=== PATIENT | female | born 2000 | race Hispanic/Latino ===

== ENCOUNTER 2024-12-09 00:37 | Observation (INO) | payer SELFPAY ==
--- OUTSIDE RECORDS SUMMARY | 2024-12-09 00:41 | XMS REPORT | Continuity of Care Document ---
Author Name Unknown Address [address] [facility] [address] [place] [address] Organization [facility] [place] Address [address] [facility] [place] [address] Care Team Providers Care Medical Researcher Name Role Phone Jonathan Mcnamara Primary Care Physicia n Gina Gagnon PA-C Attending Clinician [phone] JONATHAN MISHRA Attending Clinician Unavail able Jonathan Mcnamara Attending Clinician + Doctor Unassigned, [place] Attending Clinician U Brad Garcia Attending Clinician UnaBRAD Peters Attending Clinician Unavailab le Problems Condition Name Condition Details Condition Category Status Onset Date Resolution Date Last Treatment Date Treating Clinician Comments Source Screening examinatio n for STD (sexually transmitte d disease) Screening examinatio n for STD (sexually transmitte d disease) Disease Active 12-14 00:00: 00 [facility] Class 2 obesity with body mass index (BMI) of 35.0 to 35.9 in adult, unspecifie d obesity type, unspecifie d whether serious comorbidit y present Class 2 obesity with body mass index (BMI) of 35.0 to 35.9 in adult, unspecifie d obesity type, unspecifie d whether serious comorbidit y present Disease Active 12-14 00:00: 00 [facility] BMI 35.0-35.9, adult BMI 35.0-35.9, adult Disease Active 12-14 00:00: 00 [facility] Allergies, Adverse Reactions, Alerts Allergy Name Allergy Type Status Severity Reaction(s) Onset Date Inactive Date Treating Clinician Comments Source NO KNOWN ALLERGIE S Drug Class Active [facility] Social History Social Habit Start Date Stop Date Quantity Comments Source [facility] to SARS-CoV-2 (event) 2022-08-27 00:00:00 2022-09-06 09:29:00 Not sure [facility] Tobacco use and exposure 2021-12-14 00:00:00 2021-12-14 00:00:00 Smokeless tobacco non-user [facility] Alcohol intake 2021-12-14 00:00:00 2021-12-14 00:00:00 Lifetime non-drinker (finding) [facility] History of Social function 2021-12-14 00:00:00 2021-12-14 00:00:00 [facility] Sex Assigned At 2000 00:00:00 2000 00:00:00 [facility] Smoking Status Start Date Stop Date Source Never smoked tobacco [facility] Medications Ordered Medication Name Filled Medication Name Start Date Stop Date Current Medication? Ordering Clinician Indication Dosage Frequency Signature (SIG) Comments Components Source azithromyci n 500 mg tablet 12-18 00:00: 00 12-20 04:59 :00 No [id number] 1000mg Take 2 tablets by mouth in the morning for 1 day. [facility] No known medications 12-14 08:25: 19 No No known medication s [facility] Vital Signs Vital Name Observation Time Observation Value Comments S laura Systolic blood pressure 2022-09-06 14:30:00 132 mm[Hg] [facility] Diastolic blood pressure 2022-09-06 14:30:00 87 mm[Hg] [facility] Heart rate 2022-09-06 14:30:00 91 /min [facility] Body temperature 2022-09-06 14:30:00 35.5 Aleah [facility] Respiratory rate 2022-09-06 14:30:00 18 /min [facility] Body height 2022-09-06 14:30:00 162.6 cm [facility] Body weight 2022-09-06 14:30:00 99.701 kg [facility] BMI 2022-09-06 14:30:00 37.73 kg/m2 [facility] Procedures Procedure Date / Time Performed Performing Clinicia n Source [facility] PATIENT FINANCIAL POLICY 2022-09-06 14:07:49 Doctor Unassigned, [place] [facility] Encounters Start Date/Time End Date/Time Encounter Type Admission Type Attending [facility] Care Department Encounter ID Source 2022-09-11 00:00:00 2022-09-11 00:00:00 Patient Secure Gina Abreu [facility] [id number] 350.1.13.10 [id number] [id number] [facility] 2022-09-11 00:00:00 2022-09-11 00:00:00 Patient Secure Msg Gagnon [facility] [id number] [id number] [id number] [id number] [facility] 2022-09-06 09:15:00 2022-09-06 10:15:07 Outpatient [facility] [id number] [facility] 2022-09-06 09:15:00 2022-09-06 10:15:07 Office Visit Jonathan Mishra [facility] INCIDENT ENGINEER [facility] 1..840.114 350.1.13.10 4.2.7.2.686 [id number] [facility] 2022-09-06 00:00:00 2022-09-06 00:00:00 Orders Only Doctor Unassigned, [place] [facility] [id number] 350.1.13.10 4.2.7.2.686 [id number] [facility] 2021-12-26 00:00:00 2021-12-26 00:00:00 Patient Secure Brad Betts [facility] INCIDENT ENGINEER [facility]ILD [facility] 1.2.840.114 350.1.13.10 4.2.7.2.686 [id number] [facility] 2021-12-23 00:00:00 2021-12-23 00:00:00 Elvis Brad Betts [facility] INCIDENT ENGINEER [facility] CHILD [facility] [id number] 350.1.13.10 4.2.7.2.686 [id number] [facility] 2021-12-22 00:00:00 2021-12-22 00:00:00 Telephone Brad Betts [facility] INCIDENT ENGINEER [facility] CHILD [facility] 1.2.840.114 350.1.13.10 4.2.7.2.686 [id number] [facility] 2021-12-22 00:00:00 2021-12-22 00:00:00 Elvis Brad Betts [facility] INCIDENT ENGINEER [facility] CHILD [facility] [id number] 350.1.13.10 4.2.7.2.686 [id number] [facility] 2021-12-18 00:00:00 2021-12-18 00:00:00 Telephone Brad Betts [facility] INCIDENT ENGINEER [facility] 1.2.840.114 350.1.13.10 4.2.7.2.686 [id number] [facility] 2021-12-18 00:00:00 2021-12-18 00:00:00 Telephone Brad Betts [facility] INCIDENT ENGINEER [facility] [id number] 350.1.13.10 4.2.7.2.686 [id number] [facility] 2021-12-14 08:15:00 2021-12-14 09:02:10 Office Visit Brad Betts [facility] INCIDENT ENGINEER [facility] & CHILD [facility] [id number] 350.1.13.10 4.2.7.2.686 [id number] [facility] 2021-12-14 08:15:00 2021-12-14 09:02:10 Outpatient [facility] [id number] [facility] 2021-12-14 07:45:00 2021-12-14 07:45:00 Outpatient [facility] [id number] [facility]
[2024-12-09] MEDS ORDERED: METOCLOPRAMIDE 10 MG/2mL INJ ONE (01:17)
[2024-12-09] MEDS ORDERED: FAMOTIDINE 20 MG/2 ML VIAL IV ONE (01:17)
[2024-12-09] MEDS ORDERED: ONDANSETRON 4 MG/2 ML VIAL ONE ×2 (01:18→08:41)
[2024-12-09] MEDS ORDERED: NA CHLORIDE 0.9% 1,000 ML ONE ×2 (01:18→05:46)
[2024-12-09] MEDS ORDERED: KETOROLAC 30 MG/ML INJ ONE ×2 (01:29→10:07)
[2024-12-09] MEDS ORDERED: MORPHINE 4 MG/ML SYR ONE (01:30)
[2024-12-09 01:44] LABS: Absolute Lymphocytes (CBC) 3.4 K/uL (0.7-4.9); Hematocrit 34.8 % (36.0-45.0); Hemoglobin 11.9 g/dL (12.0-15.0); MCH 28.6 pg (27.0-35.0); MCHC 34.1 g/dL (32.0-36.0); MCV 83.9 fL (80-100); MPV 7.3 fL (7.6-11.3); Nucleated RBC Absolute Count 0.0 (0-0); Nucleated Red Blood Cells % 0.0 % (0-0); RBC Red Blood Cell Count 4.15 M/uL (3.86-4.86); White Blood Count 11.80 thou/uL (4.3-10.9)
[2024-12-09 02:00] LABS: ALT/SGPT 38.0 U/L (13-56); AST/SGOT 19.0 U/L (15-37); Albumin 3.6 g/dL (3.4-5.0); Albumin/Globulin Ratio 0.9 (1.1-1.8); Alkaline Phosphatase 70.0 U/L (45-117); Anion Gap 12.3 mEq/L (5.0-15.0); BUN Blood Urea Nitrogen 14.0 mg/dL (7-18); Globulin 4.0 g/dL (2.3-3.5); Glucose Level 143.0 mg/dL (74-106); Lipase 34.0 U/L (13-75); Potassium 3.3 mEq/L (3.5-5.1)
--- NOTE | 2024-12-09 03:46 | RAD REPORT ---
INDICATION: ABD PAIN COMPARISON: No existing relevant imaging studies are available TECHNIQUE: Enhanced CT of the abdomen and pelvis performed per protocol. Oral contrast was not administered. Mul tiplanar reconstructions were provided. Dose reduction techniques were utilized for this exam including automated exposure control, adjustmen ts to mA and/or kV according to patient's size, and the use of iterative reconstruction techniques. FINDINGS: LOWER CHEST: Lung bases are clear. LIVER: Unremarkable. SPLEEN: Unremarkable. PANCREAS: Unremarkable. ADRENALS: Unremarkable. KIDNEYS: Unremarkable. GALLBLADDER: Cholelithiasis with mild gallbladder distention. VESSELS: Aortoiliac system normal in course and caliber. BOWEL: Unremarkable. APPENDIX: Normal. FLUID: No free fluid or abnormal fluid collection. ADENOPATHY: No pathologic adenopathy. BLADDER: Unremarkable. PELVIS: Uterus and adnexa are unremarkable. BONES: No acute bony abnormality. Mild rightward curvature of the lumbar spine as positioned. SOFT TISSUES: Unremarkable. IMPRESSION: Cholelithiasis with mild gallbladder distention. If clinical concern for acute cholecystitis, gallbla dder ultrasound and/or HIDA scan would be considered. Electronically signed by: Jose Lilly DO 12/09/2024 02:51 AM CDT NR Due to temporary technical issues with the [employer] reporting system, reports are being myah d by the in-house radiologist without review as a courtesy to ensure prompt reporting the interpreting radiologist is fully responsible for the content of the report. Transcribed Date/Time: 12/09/2024 3:46 AM
[2024-12-09 04:08] LABS: Sqamous Epithelial None Seen /HPF (None Seen); Urine Micro Reflex YN NO BILL MICROSCOPIC
[2024-12-09] MEDS ORDERED: NA CHLORIDE 0.9% 100 ML ONE (05:46)
[2024-12-09] MEDS ORDERED: PIPERACIL/TAZO 3.375 GM VIAL IV ONE (05:46)
--- NOTE | 2024-12-09 05:47 | EDPHYS ---
Physician Documentation [facility] Name: Liberty Licona Age: 24 yrs Sex: Female : 2000 Arrival Date: 12/09/2024 Time: 00:37 Bed 5 Private MD: ED Physician Boone Sheth HPI: 12/09 00:47 This 24 yrs old Female presents to ER via Unassigned with complaints of sp4 Abdominal Pain, Nausea/Vomiting, Low Back Pain. 19:23 Very pleasant patient presents with upper abdominal pain nausea vomiting and low back sp4 pain.. Historical: - Allergies: 00:48 No Known Allergies; br2 - PMHx: 00:48 None; br2 - PSHx: 00:48 None; br2 - Immunization history:: Adult Immunizations up to date. - Infectious Disease History:: Denies. - Social history:: Smoking status: Reported history of juuling and/or vaping. Patient uses alcohol, occasionally. Patient/guardian denies using street drugs. - Family history:: not pertinent. ROS: 19:23 Constitutional: Negative for fever, chills, and weight loss, positive for upper sp4 abdominal pain positive nausea vomiting 19:23 All other systems are negative, Exam: 19:23 Constitutional: This is a well developed, well nourished patient who is awake, alert, sp4 and in no acute distress. Head/Face: Normocephalic, atraumatic. Eyes: Pupils equal round and reactive to light, extra-ocular motions intact. Lids and lashes normal. Conjunctiva and sclera are not injected. Cornea within normal limits. Periorbital areas with no swelling, redness, or edema. ENT: Nares patent. No nasal discharge, no septal abnormalities noted. Tympanic membranes are normal and external auditory canals are clear. Oropharynx with no redness, swelling, or masses, exudates, or evidence of obstruction, uvula midline. Mucous membranes moist. Neck: Trachea midline, no thyromegaly or masses palpated, and no cervical lymphadenopathy. Supple, full range of motion without nuchal rigidity, or vertebral point tenderness. Chest/axilla: Normal chest wall appearance and motion. Nontender with no deformity. No lesions are appreciated. Cardiovascular: Regular rate and rhythm with a normal S1 and S2. No gallops, murmurs, or rubs. No pulse deficits. Respiratory: Lungs have equal breath sounds bilaterally, clear to auscultation and percussion. No rales, rhonchi or wheezes noted. No increased work of breathing, no retractions or nasal flaring. Abdomen/GI: Soft, with normal bowel sounds. No distension or tympany. No guarding or rebound. No evidence of tenderness throughout. Back: No spinal tenderness. No costovertebral tenderness. Skin: Warm, dry with normal turgor. Normal color with no rashes, no lesions, and no evidence of cellulitis. MS/ Extremity: Pulses equal, no cyanosis. Neurovascular intact. Full, normal range of motion. Neuro: Awake and alert, GCS 15, oriented to person, place, time, and situation. Cranial nerves II-XII grossly intact. Motor strength 5/5 in all extremities. Sensory grossly intact. Psych: Awake, alert, with orientation to person, place and time. Behavior, mood, and affect are within normal limits Vital Signs: 00:45 BP 141 / 94; Pulse 97; Resp 18; Temp 97.2; Pulse Ox 100% on R/A; Weight 99.79 kg; br2 Height 5 ft. 4 in. ; Pain 10/10; 01:42 BP 120 / 92; Pulse 91; Resp 17; Temp 97.2; Pulse Ox 100% ; Pain 8/10; bm8 02:54 BP 135 / 80; Pulse 100; Resp 18; Pulse Ox 100% ; jj7 05:24 BP 131 / 51; Pulse 95; Resp 17; Temp 97.2; Pulse Ox 100% ; Pain 0/10; bm8 06:22 BP 137 / 74; Pulse 88; Resp 18; Pulse Ox 100% on R/A; jj7 08:28 BP 122 / 81; Pulse 87; Resp 16; Pulse Ox 100% ; ph 00:45 Body Mass Index 37.76 (99.79 kg, 162.56 cm) br2 00:45 Pain Scale: Adult br2 01:42 Pain Scale: Adult bm8 05:24 Pain Scale: Adult bm8 Zan Coma Score: 01:42 Eye Response: spontaneous(4). Motor Response: obeys commands(6). Verbal Response: bm8 oriented(5). Total: 15. 02:54 Eye Response: spontaneous(4). Motor Response: obeys commands(6). Verbal Response: bm8 oriented(5). Total: 15. 05:24 Eye Response: spontaneous(4). Motor Response: obeys commands(6). Verbal Response: bm8 oriented(5). Total: 15. 19:23 Eye Response: spontaneous(4). Motor Response: obeys commands(6). Verbal Response: sp4 oriented(5). Total: 15. Trauma Score (Adult): 06:22 Eye Response: spontaneous(1); Verbal Response: oriented(1); Motor Response: obeys jj7 commands(2); Systolic BP: > 89 mm Hg(4); Respiratory Rate: 10 to 29 per min(4); Zan Score: 15; Trauma Score: 12 MDM: 00:48 Medical Screening Exam initiated sp4 19:24 Differential diagnosis: Nonspecific abd pain, gastritis, cholecystitis, pancreatitis, sp4 appendicitis, diverticulitis, viral gastroenteritis, gastroenteritis. Data reviewed: vital signs, nurses notes, lab test result(s), radiologic studies, CT scan. Consideration of Admission/Observation Escalation of care including admission/observation considered. Management of patient was discussed with the following: Hospitalist: Discussed with admission team - Raj. Broach Grinder: Jeremias Mendenhall with general surgery. ED course: Stable for admission for findings of acute cholecystitis.. 19:26 ED course: INDICATION: ABD PAIN COMPARISON: No existing relevant imaging studies are sp4 available TECHNIQUE: Enhanced CT of the abdomen and pelvis performed per protocol. Oral contrast was not administered. Multiplanar reconstructions were provided. Dose reduction techniques were utilized for this exam including automated exposure control, adjustments to mA and/or kV according to patient's size, and the use of iterative reconstruction techniques. FINDINGS: LOWER CHEST: Lung bases are clear. LIVER: Unremarkable. SPLEEN: Unremarkable. PANCREAS: Unremarkable. ADRENALS: Unremarkable. KIDNEYS: Unremarkable. GALLBLADDER: Cholelithiasis with mild gallbladder distention. VESSELS: Aortoiliac system normal in course and caliber. BOWEL: Unremarkable. APPENDIX: Normal. FLUID: No free fluid or abnormal fluid collection. ADENOPATHY: No pathologic adenopathy. BLADDER: Unremarkable. PELVIS: Uterus and adnexa are unremarkable. BONES: No acute bony abnormality. Mild rightward curvature of the lumbar spine as positioned. SOFT TISSUES: Unremarkable. IMPRESSION: Cholelithiasis with mild gallbladder distention. If clinical concern for acute cholecystitis, gallbladder ultrasound and/or HIDA scan would be considered.. 12/09 00:47 Order name: CBC with Diff; Complete Time: 05: sp4 12/09 00:47 Order name: CMP; Complete Time: 05: sp4 12/09 00:47 Order name: Lipase; Complete Time: 05: sp4 12/09 00:48 Order name: Test, Serum; Complete Time: 05: sp4 12/09 00:48 Order name: UA W/ Microscopic; Complete Time: 05:29 sp4 12/09 07:45 Order name: CBC with Automated Diff EDMS 12/09 07:45 Order name: CBC with Automated Diff EDMS 12/09 07:45 Order name: CBC with Automated Diff EDMS 12/09 07:45 Order name: Comprehensive Metabolic Panel EDMS 12/09 07:45 Order name: Comprehensive Metabolic Panel EDMS 12/09 07:45 Order name: Comprehensive Metabolic Panel EDMS 12/09 07:45 Order name: Magnesium EDMS 12/09 07:45 Order name: Magnesium EDMS 12/09 07:45 Order name: Magnesium EDMS 12/09 07:45 Order name: Phosphorus EDMS 12/09 07:45 Order name: Phosphorus EDMS 12/09 07:45 Order name: Phosphorus EDMS 12/09 00:47 Order name: CT Abd/Pelvis - IV Contrast Only sp4 12/09 07:45 Order name: CONS Physician Consult EDMS 12/09 00:47 Order name: IV Saline Lock; Complete Time: : sp4 12/09 00:47 Order name: Labs collected and sent; Complete Time: : sp4 Administered Medications: 01:41 Drug: Famotidine IVP 20 mg IVP once; dilute with 10 mL 0.9% NaCl; give over 2 minutes bm8 Route: IVP; Site: right antecubital; 02:56 Follow up: Response: No adverse reaction bm8 01:41 Drug: NS 0.9% IV 1000 ml IV at 1 bolus Per protocol; to be given as a bolus over 60 bm8 minutes Route: IV; Rate: 1 bolus; Site: right antecubital; 05:25 Follow up: Response: No adverse reaction; IV Status: Completed infusion bm8 01:41 Drug: metoCLOPramide IVP 10 mg IVP once; over 1 to 2 minutes Route: IVP; Site: right bm8 antecubital; 02:55 Follow up: Response: No adverse reaction bm8 01:41 Drug: Ketorolac IVP 30 mg IVP once Route: IVP; Site: right antecubital; bm8 02:55 Follow up: Response: No adverse reaction bm8 01:41 Drug: morphine IVP or IV 4 mg IVP once over 4 mins Route: IVP; Infused Over: 4 mins; bm8 Site: right antecubital; 02:55 Follow up: Response: No adverse reaction bm8 01:42 Drug: Ondansetron IVP 4 mg IVP once; over 2 minutes Route: IVP; Site: right antecubital;bm8 02:56 Follow up: Response: No adverse reaction bm8 02:53 Drug: Droperidol IVP 2.5 mg IVP once Route: IVP; Site: right antecubital; bm8 02:55 Follow up: Response: No adverse reaction bm8 06:21 Drug: Piperacillin-Tazobactam IVPB 3.375 grams IVPB once over 60 mins; (mix in NS 100 mf3 mL) Route: IVPB; Infused Over: 60 mins; Site: right antecubital; 08:29 Follow up: IV Status: Completed infusion ph 06:21 Drug: NS 0.9% IV 1000 ml IV at 125 ml/hr Per protocol; to be given as a bolus over 60 mf3 minutes Route: IV; Rate: 125 ml/hr; Site: right antecubital; 08:29 Follow up: IV Status: Completed infusion ph Disposition: 19:24 Chart complete. sp4 Disposition Summary: 12/09/24 05:46 Hospitalization Ordered Notes: Hospitalization Status: Observation sp4 Provider: Chito Smith sp4 Condition: Fair sp4 Problem: new sp4 Symptoms: are unchanged sp4 Bed/Room Type: Standard sp4 Location: Telemetry/MedSurg (observation)(12/09/24 08:10) Room Assignment: [facility](12/09/24 08:10) Diagnosis - Acute cholecystitis sp4 Forms: - Medication Reconciliation Form sp4 - SBAR form sp4 - Leadership Thank You Letter sp4 Signatures: Dispatcher [employer] Selma Soares RN RN ss Boone Sheth MD MD sp4 Frank Villasenor RN RN bm8 Reyna Montana RN RN br2 Ora Moncada RN RN mf3 Carmen Temple RN ph Corrections: (The following items were deleted from the chart) 08:07 05:46 sp4 08:10 05:46 Telemetry/MedSurg (observation) sp4 08:10 08:07 406 [facility] 08:10 08:10 BR ER HOLD [facility] 08:10 08:10 [facility]
--- NOTE | 2024-12-09 05:47 | ER ---
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 SOB HAS BEEN GOING FOR SEVERAL MONTHS. Coronavirus screen: Client denies travel out of the [place] in the last 14 days. Ebola Screen: Patient denies exposure to infectious person. Initial Sepsis Screen: Does the patient meet any 2 criteria? No. Patient's initial sepsis screen is negative. Does the patient have a suspected source of infection? No. Patient's initial sepsis screen is negative. Risk Assessment: Do you want to hurt yourself or someone else? Patient reports no desire to harm self or others. Onset of symptoms was December 08, 2024 at 22:45. 00:45 Method Of Arrival: Ambulatory br2 00:45 Acuity: KARIE 3 br2 Triage Assessment: 00:48 General: Appears uncomfortable, Behavior is calm, cooperative. Pain: Complains of pain br2 in umbilical area, right upper quadrant and left upper quadrant Pain radiates to thoracic area, lumbar area, left mid back and right mid back. GI: Reports upper abdominal pain, nausea, vomiting. Historical: - Allergies: 00:48 No Known Allergies; br2 - PMHx: 00:48 None; br2 - PSHx: 00:48 None; br2 - Immunization history:: Adult Immunizations up to date. - Infectious Disease History:: Denies. - Social history:: Smoking status: Reported history of juuling and/or vaping. Patient uses alcohol, occasionally. Patient/guardian denies using street drugs. - Family history:: not pertinent. Screenin:16 [facility] ED Fall Risk Assessment (Adult) History of falling in the last 3 months, jj7 including since admission No falls in past 3 months (0 pts) Confusion or Disorientation No (0 pts) Intoxicated or Sedated No (0 pts) Impaired Gait Yes (1 pt) Mobility Assist Device Used No (0 pt) Altered Elimination No (0 pt) Score/Fall Risk Level 0 - 2 = Low Risk Oriented to surroundings, Maintained a safe environment, Educated pt \T\ family on fall prevention, incl call for assistance when getting out of bed, Assessed \T\ reinforced patient's understanding of fall precautions. Abuse screen: Denies threats or abuse. Nutritional screening: No deficits noted. Tuberculosis screening: No symptoms or risk factors identified. Assessment: 01:16 General: Appears in no apparent distress. uncomfortable, Behavior is calm, cooperative, jj7 appropriate for age. Pain: Complains of pain in abdomen. Neuro: No deficits noted. Level of Consciousness is awake, alert, obeys commands, Oriented to person, place, time, situation, Appropriate for age. Cardiovascular: No deficits noted. Respiratory: Reports shortness of breath. GI: Abd is soft X 4 quads Abdomen is tender to palpation in epigastric area, right upper quadrant and left upper quadrant Reports upper abdominal pain, epigastric pain, nausea, vomiting. 02:54 Reassessment: Patient appears in no apparent distress at this time. Patient and/or bm8 family updated on plan of care and expected duration. Pain level reassessed. Patient is alert, oriented x 3, equal unlabored respirations, skin warm/dry/pink. Patient states feeling better. Patient states symptoms have improved. Pain: Pain currently is 7 out of 10 on a pain scale. 03:49 Reassessment: Patient appears in no apparent distress at this time. Patient and/or bm8 family updated on plan of care and expected duration. Pain level reassessed. Patient is alert, oriented x 3, equal unlabored respirations, skin warm/dry/pink. Patient denies pain at this time. Patient states feeling better. Patient states symptoms have improved. GI: Bowel sounds present X 4 quads. Patient currently denies nausea, pain, vomiting. 05:24 Reassessment: Patient appears in no apparent distress at this time. Patient and/or bm8 family updated on plan of care and expected duration. Pain level reassessed. Patient is alert, oriented x 3, equal unlabored respirations, skin warm/dry/pink. Patient denies pain at this time. Patient states feeling better. Patient states symptoms have improved. 08:29 Reassessment: PT FORTINO WITH OR. ph Vital Signs: 00:45 BP 141 / 94; Pulse 97; Resp 18; Temp 97.2; Pulse Ox 100% on R/A; Weight 99.79 kg; br2 Height 5 ft. 4 in. ; Pain 10/10; 01:42 BP 120 / 92; Pulse 91; Resp 17; Temp 97.2; Pulse Ox 100% ; Pain 8/10; bm8 02:54 BP 135 / 80; Pulse 100; Resp 18; Pulse Ox 100% ; jj7 05:24 BP 131 / 51; Pulse 95; Resp 17; Temp 97.2; Pulse Ox 100% ; Pain 0/10; bm8 06:22 BP 137 / 74; Pulse 88; Resp 18; Pulse Ox 100% on R/A; jj7 08:28 BP 122 / 81; Pulse 87; Resp 16; Pulse Ox 100% ; ph 00:45 Body Mass Index 37.76 (99.79 kg, 162.56 cm) br2 00:45 Pain Scale: Adult br2 01:42 Pain Scale: Adult bm8 05:24 Pain Scale: Adult bm8 Zan Coma Score: 01:42 Eye Response: spontaneous(4). Motor Response: obeys commands(6). Verbal Response: bm8 oriented(5). Total: 15. 02:54 Eye Response: spontaneous(4). Motor Response: obeys commands(6). Verbal Response: bm8 oriented(5). Total: 15. 05:24 Eye Response: spontaneous(4). Motor Response: obeys commands(6). Verbal Response: bm8 oriented(5). Total: 15. 19:23 Eye Response: spontaneous(4). Motor Response: obeys commands(6). Verbal Response: sp4 oriented(5). Total: 15. Trauma Score (Adult): 06:22 Eye Response: spontaneous(1); Verbal Response: oriented(1); Motor Response: obeys jj7 commands(2); Systolic BP: > 89 mm Hg(4); Respiratory Rate: 10 to 29 per min(4); Upton Score: 15; Trauma Score: 12 ED Course: 00:40 Patient arrived in ED. gm2 00:47 Boone Sheth MD is Attending Physician. sp4 00:48 Triage completed. br2 01:16 Ora Moncada, RN is Primary Nurse. mf3 01:16 Patient has correct armband on for positive identification. Bed in low position. Call jj7 light in reach. Adult w/ patient. Provided Education on: USE OF CALL CHRISTINE. Client placed on continuous cardiac and pulse oximetry monitoring. NIBP monitoring applied. Warm blanket given. 01:16 Inserted saline lock: 20 gauge in right antecubital area, using aseptic technique. jj7 Blood collected. Flushed with 10 mL NS. 01:20 Lipase Sent. jj7 01:20 CMP Sent. jj7 01:20 CBC with Diff Sent. jj7 01:20 Test, Serum Sent. jj7 02:29 CT Abd/Pelvis - IV Contrast Only In Process Unspecified. EDMS 02:54 No provider procedures requiring assistance completed. Patient maintains SpO2 bm8 saturation greater than 95% on room air. 05:46 Chito Smith MD is Hospitalizing Provider. sp4 08:29 Arm band placed on. ph 08:29 Patient admitted, IV remains in place. ph Administered Medications: 01:41 Drug: Famotidine IVP 20 mg IVP once; dilute with 10 mL 0.9% NaCl; give over 2 minutes bm8 Route: IVP; Site: right antecubital; 02:56 Follow up: Response: No adverse reaction bm8 01:41 Drug: NS 0.9% IV 1000 ml IV at 1 bolus Per protocol; to be given as a bolus over 60 bm8 minutes Route: IV; Rate: 1 bolus; Site: right antecubital; 05:25 Follow up: Response: No adverse reaction; IV Status: Completed infusion bm8 01:41 Drug: metoCLOPramide IVP 10 mg IVP once; over 1 to 2 minutes Route: IVP; Site: right bm8 antecubital; 02:55 Follow up: Response: No adverse reaction bm8 01:41 Drug: Ketorolac IVP 30 mg IVP once Route: IVP; Site: right antecubital; bm8 02:55 Follow up: Response: No adverse reaction bm8 01:41 Drug: morphine IVP or IV 4 mg IVP once over 4 mins Route: IVP; Infused Over: 4 mins; bm8 Site: right antecubital; 02:55 Follow up: Response: No adverse reaction bm8 01:42 Drug: Ondansetron IVP 4 mg IVP once; over 2 minutes Route: IVP; Site: right antecubital;bm8 02:56 Follow up: Response: No adverse reaction bm8 02:53 Drug: Droperidol IVP 2.5 mg IVP once Route: IVP; Site: right antecubital; bm8 02:55 Follow up: Response: No adverse reaction bm8 06:21 Drug: Piperacillin-Tazobactam IVPB 3.375 grams IVPB once over 60 mins; (mix in NS 100 mf3 mL) Route: IVPB; Infused Over: 60 mins; Site: right antecubital; 08:29 Follow up: IV Status: Completed infusion ph 06:21 Drug: NS 0.9% IV 1000 ml IV at 125 ml/hr Per protocol; to be given as a bolus over 60 mf3 minutes Route: IV; Rate: 125 ml/hr; Site: right antecubital; 08:29 Follow up: IV Status: Completed infusion ph Medication: 01:16 VIS not applicable for this client. jj7 Outcome: 05:46 Decision to Hospitalize by Provider. sp4 08:29 Admitted to OR accompanied by nurse, via wheelchair, ph 08:29 Condition: stable 08:29 Instructed on the need for admit, 08:30 Patient left the ED. ph Signatures: Dispatcher [employer] EDMS Carmen Temple RN RN Roscoe Chase RN RN jj7 Boone Sheth MD MD sp4 Yoly Martinez 2 Frank Villasenor RN RN bm8 Reyna Montana RN RN br2 Ora Moncada RN RN mf3
--- NOTE | 2024-12-09 07:12 | P.HP ---
Certification for Inpatient Patient admitted to: Observation With expected LOS: <2 Midnights Practitioner: I am a practitioner with admitting privileges, knowledge of patient current condition, hospital course, and medical plan of care. Services: Services provided to patient in accordance with Admission requirements found in Title 42 Section 412.3 of the Code of Federal Regulations Patient History Date of Service: 12/09/24 Reason for admission: Acute cholecystitis History of Present Illness: Liberty Licona is a 24 year old with pmhx smoking abuse (reports vaping) who presents to the ED with abdominal pain, N/V, and lower back pain since 10:30 last night. She reports having two other episodes like this in the past. She denies having a PCP but reports she is not sick very often. Laboratory evaluation significant for WBC 11.8, H&H 11/34, potassium 3.3, serum glucose 143, test negative, UA negative for significant findings. CT abdomen pelvis report "Cholelithiasis with mild gallbladder distention. If clinical concern for acute cholecystitis, gallbladder ultrasound and/or HIDA scan would be considered." Liberty will be admitted to hospital service for further evaluation and treatment acute cholecystitis, Dr. Mendenhall consulted. - Past Medical/Surgical History -: Vaping Past Surgical History: Patient denies surgical history - Social History Smoking Status: Current every day smoker (Vaping) Alcohol use: Yes CD- Drugs: No Review of Systems Other: per HPI Physical Examination - Physical Exam General: Alert, In no apparent distress, Oriented x3 HEENT: Atraumatic, Normocephalic Neck: Supple, 2+ carotid pulse no bruit Respiratory: Clear to auscultation bilaterally, Normal air movement Cardiovascular: Normal pulses, Regular rate/rhythm Gastrointestinal: Normal bowel sounds, Soft and benign, Tenderness (epigastric) Musculoskeletal: No clubbing Integumentary: No rashes Neurological: Normal speech, Normal tone - Studies Laboratory Data (last 24 hrs) 12/09/24 12/09/24 01:24 01:24 WBC 11.80 H Hgb 11.9 L Hct 34.8 L Plt Count 370 Sodium 140 Potassium 3.3 L BUN 14 Creatinine 0.89 Glucose 143 H Total Bilirubin 0.3 AST 19 ALT 38 Alkaline Phosphatase 70 Lipase 34 Assessment and Plan - Plan Assessment and plan Acute cholecystitis nausea/vomiting - Dr. Mendenhall consulted - NPO now - Zosyn -Zofran PRN - Pain control -Gentle IVF Hypokalemia -K 3.3 - replace PRN Smoking abuse -Patient reports Juuling and vaping DVT ppx SCD Full code LOS 24 hour OBS Discharge Plan: Home Plan to discharge in: 24 Hours - Advance Directives Does patient have a Living Will: No Does patient have a Durable POA for Healthcare: No Time Spent Managing Pts Care (In Minutes): 60
[2024-12-09] MEDS ORDERED: MORPHINE 2 MG/ML SYR IV PRN (07:39)
[2024-12-09] MEDS ORDERED: ONDANSETRON 4 MG/2 ML VIAL IV PRN (07:39)
[2024-12-09] MEDS ORDERED: ACETAMINOPHEN 325 MG TABLET PO PRN (07:39)
[2024-12-09] MEDS ORDERED: LIDOCAINE 2% MPF 5 ML VIAL ONE (08:41)
[2024-12-09] MEDS ORDERED: MIDAZOLAM HCL 2 MG/2 ML INJ ONE (08:41)
[2024-12-09] MEDS ORDERED: ROCURONIUM 50 MG/5 ML VIAL IV ONE (08:41)
[2024-12-09] MEDS ORDERED: FENTANYL CITR 100 MCG/2 ML ONE (08:41)
[2024-12-09] MEDS ORDERED: NEOSTIGMINE 1 MG/ML -10 ML VIAL ONE (10:07)
[2024-12-09] MEDS ORDERED: GLYCOPYRROLATE 0.2 MG/ML SYR ONE (10:07)
--- NOTE | 2024-12-09 10:11 | P.BOP ---
Preoperative diagnosis: symptomatic cholelithiasis, acute cholecystitis, morbid obesity Postoperative diagnosis: same Primary procedure: Laparoscopic cholecystectomy Estimated blood loss: <10cc Specimen: gb Findings: as above Anesthesia: General Complications: None Transferred to: Recovery Room Condition: Good
[2024-12-09] MEDS ORDERED: HYDROCODONE/APAP 5/325 MG TAB PO PRN (10:14)
[2024-12-09] MEDS ORDERED: Mastisol Adhesive Liq ONE (10:22)
[2024-12-09 10:40] VITALS: O2SAT 100
--- NOTE | 2024-12-09 11:16 | CON ---
Date of Consultation: 12/09/2024 Diagnoses: Acute cholecystitis, symptomatic cholelithiasis. History Of Present Illness: This is a case of a 24-year-old patient who comes to the ER overnight wi th nausea, vomiting, abdominal pain after she ate some dale meal. She states she has some other epi sodes at least 2 in the past in last month, but she thought it was not anything big until this time j ust the pain did not go away. She denies any dysuria, hematuria, hematochezia, melena. Denies any r ecent traveling out of the country. Denies any family member sick at home. Review of Systems: 10 points are otherwise unremarkable. Past Surgical History: None. Medical History: None. Social History: She vapes daily. Alcohol occasionally. Family History: Noncontributory. Allergies: NONE. Physical Examination: Vital Signs: Reviewed. General: The patient is awake, alert. HEENT: Pupils are equal and reactive. Anicteric. Neck: Supple. Chest: Clear. Heart: S1, S2. Abdomen: Epigastric right upper quadrant pain with Mary sign positive. The rest of the abdomen is soft and depressible. Breasts/Pelvic/Rectal: Deferred. Extremities: Good capillary refill. Neuro: Cranial nerves 2-12 grossly within normal limits. Laboratory Data: Blood work shows WBC count of 11.8 with hemoglobin of 11.9, and platelets of 370. Glucose 143. Total bilirubin of 0.3, alkaline phosphate 70. Lipase 34. CAT scan of the abdomen an d pelvis shows cholelithiasis with mild gallbladder distention consistent with acute cholecystitis. Assessment: This is a case of a 24-year-old patient with acute abdominal pain, nausea, vomiting, barbara gnosed with symptomatic cholelithiasis and acute cholecystitis. Did not improve, so patient was admi tted to the hospital. We offered her the options that include, but not limited to laparoscopic, poss ible open cholecystectomy with benefits, alternatives, and risks including, but not limited to infect ion, bleeding, damage to adjacent structures, anesthesia complication, choledocholithiasis, bile leak , pancreatitis, [place], and even . She also understands this may not relieve symptoms. She might n eed more than one surgical intervention. She understood, signed a consent. She wants to have it don e during this admission. HM/MODL Voice ID: [id number] Report ID: [id number]
[2024-12-09] MEDS: PIPER TAZO 3.375 GM in NA CHLORIDE 0.9% 100 ML IV SCH (11:26)
[2024-12-09] MEDS: NA CHLORIDE 0.9% 1,000 ML IV SCH (11:26)
--- NOTE | 2024-12-09 11:35 | OP ---
Date of Procedure: 12/09/2024 Surgeon: Jeremias Mendenhall MD Preoperative Diagnoses: Symptomatic cholelithiasis, acute cholecystitis, morbid obesity. Postoperative Diagnoses: Symptomatic cholelithiasis, acute cholecystitis, morbid obesity. Procedure: Laparoscopic cholecystectomy. Estimated Blood Loss: Less than 10 cc. Specimen: Gallbladder. Anesthesia: General plus local. Indications: This is the case of a 24-year-old patient, comes with acute abdominal pain. Discussed the benefits, alternatives, and risks of laparoscopic possible open cholecystectomy, which include, b ut not limited to infection, bleeding, damage to adjacent structures, anesthesia complication, choled ocholithiasis, bile leak, pancreatitis, AK, and even . She also understands this may not reliev e symptoms. She might need more than one surgical intervention. She understood, signed a consent. Description Of Procedure: The patient was brought to the operating room, placed in supine position, anesthesia was done without complication. Abdominal area was prepped and draped in sterile fashion. Local anesthesia was applied followed by sharp incision of the skin in the infraumbilical region. I ncision was carried down to fascia, which was opened under direct vision. Peritoneum was encountered , opened under direct vision. Vicryl #1 placed inside the fascia. Sal trocar was carefully intro duced. Pneumoperitoneum was obtained. I placed 3 more trocars, 5 mm each one of them in the epigast rahul right upper quadrant area and the same technique which is a local anesthetic, sharp incision of t he skin, introduction of the trocars under direct vision. Due to distention and edema of the gallbla dder, we have to use an Endo needle under direct visualization, deflate partially the gallbladder. T he needle was removed under direct visualization. Grasper was placed in the fundus of the gallbladde r, another grasper in the infundibulum, retracting the gallbladder in the inferolateral fashion expos ing the triangle of Calot, obtaining critical view. Multiple adhesions to the omentum, to the gallbl adder, and then liver were carefully ligated with the help of ligature. Once again, we identified th e cystic duct and cystic artery. We identified it circumferentially. Once again, the connection bet ween those and the gallbladder were clearly identified. I proceeded to ligate those by using at leas t 3 clips proximal, 1 clip distal, ligation in middle. Same was done with the cystic artery. No jina e leak. No bleeding. The gallbladder was removed from liver using Bovie cauterizer and removed from abdominal cavity using EndoCatch through the umbilical incision. The umbilical incision had to be o pened little bit more to accommodate the size of the gallbladder. Sal trocar was carefully introd uced. No bleeding was obtained. Once again, we inspected the area. No bile leak. No bleeding. Th e area of adhesions with also no bleeding. The gallbladder fossa had no bleeding. No bile leak. Cl ips were intact. At that moment, I proceeded to remove the trocars under direct vision, deflated pne umoperitoneum, closed the fascia with #1 Vicryl, irrigated subcutaneous tissue, closed that with 3-0 chromic and then skin in a subcuticular fashion. Sponge count and instrument counts correct. The pa tient tolerated the procedure well. The patient was sent to recovery in stable condition. GORDON/RU Voice ID: [id number] Report ID: [id number]
[2024-12-09 13:06] VITALS: BMI 37.8
[2024-12-10 04:37] LABS: Absolute Lymphocytes (CBC) 2.0 K/uL (0.7-4.9); Hematocrit 31.6 % (36.0-45.0); Hemoglobin 10.6 g/dL (12.0-15.0); MCH 28.4 pg (27.0-35.0); MCHC 33.4 g/dL (32.0-36.0); MCV 84.8 fL (80-100); MPV 7.5 fL (7.6-11.3); Nucleated RBC Absolute Count 0.0 (0-0); Nucleated Red Blood Cells % 0.0 % (0-0); RBC Red Blood Cell Count 3.72 M/uL (3.86-4.86); White Blood Count 14.50 thou/uL (4.3-10.9)
[2024-12-10 04:56] LABS: ALT/SGPT 57.0 U/L (13-56); AST/SGOT 43.0 U/L (15-37); Albumin 2.7 g/dL (3.4-5.0); Albumin/Globulin Ratio 0.8 (1.1-1.8); Alkaline Phosphatase 55.0 U/L (45-117); Anion Gap 6.6 mEq/L (5.0-15.0); BUN Blood Urea Nitrogen 8.0 mg/dL (7-18); Globulin 3.5 g/dL (2.3-3.5); Glucose Level 123.0 mg/dL (74-106); Magnesium 2.0 mg/dL (1.6-2.4); Potassium 3.6 mEq/L (3.5-5.1)
[2024-12-10] MEDS: POTASSIUM CL SA 10 MEQ TAB PO ONE (09:20)
[2024-12-10 12:18] VITALS: BP 116/63; TEMP 98.1
--- NOTE | 2024-12-10 13:11 | P.DS ---
Admission Date: 12/09/24 Discharge Date: 12/10/24 Disposition: ROUTINE DISCHARGE Discharge Condition: GOOD Reason for Admission: Acute cholecystitis Brief History of Present Illness: Liberty Licona is a 24 year old with pmhx smoking abuse (reports vaping) who presents to the ED with abdominal pain, N/V, and lower back pain since 10:30 last night. She reports having two other episodes like this in the past. She denies having a PCP but reports she is not sick very often. Laboratory evaluation significant for WBC 11.8, H&H 11/34, potassium 3.3, serum glucose 143, test negative, UA negative for significant findings. CT abdomen pelvis report "Cholelithiasis with mild gallbladder distention. If clinical concern for acute cholecystitis, gallbladder ultrasound and/or HIDA scan would be considered." Liberty will be admitted to hospital service for further evaluation and treatment acute cholecystitis, Dr. Mendenhall consulted. Vital Signs/Physical Exam: Temp Pulse Resp BP Pulse Ox 98.1 F 69 14 116/63 96 12/10/24 12:00 12/10/24 12:00 12/10/24 12:00 12/10/24 12:00 12/10/24 12:00 Laboratory Data at Discharge: WBC 14.50 thou/uL (4.3-10.9) H 12/10/24 04:13 Hgb 10.6 g/dL (12.0-15.0) L D 12/10/24 04:13 Hct 31.6 % (36.0-45.0) L 12/10/24 04:13 Plt Count 311 thou/uL (152-406) 12/10/24 04:13 Sodium 141 mEq/L (136-145) 12/10/24 04:13 Potassium 3.6 mEq/L (3.5-5.1) 12/10/24 04:13 BUN 8 mg/dL (7-18) 12/10/24 04:13 Creatinine 0.71 mg/dL (0.55-1.02) 12/10/24 04:13 Glucose 123 mg/dL (74-106) H 12/10/24 04:13 Phosphorus 3.4 mg/dL (2.5-4.9) 12/10/24 04:13 Magnesium 2.0 mg/dL (1.6-2.4) 12/10/24 04:13 Total Bilirubin 0.5 mg/dL (0.2-1.0) 12/10/24 04:13 AST 43 U/L (15-37) H 12/10/24 04:13 ALT 57 U/L (13-56) H 12/10/24 04:13 Alkaline Phosphatase 55 U/L (45-117) D 12/10/24 04:13 Lipase 34 U/L (13-75) 12/09/24 01:24 Home Medications: Amox/Clavulanate [Augmentin 875-125 Tab] 875 mg PO BID 1 Days #14 tab 12/09/24 traMADol HCL [Ultram*] 50 mg PO Q6H PRN 5 Days #15 tab 12/09/24 New Medications: Amox/Clavulanate [Augmentin 875-125 Tab] 875 mg PO BID 1 Days #14 tab traMADol HCL [Ultram*] 50 mg PO Q6H PRN 5 Days #15 tab PRN Reason: Pain Physician Discharge Instructions: -DC IV and DC home -Follow-up with PCP in 1 to 2 weeks -Follow-up with Dr. Mendenhall in one week -Please call Dr. Melton at [phone] if any questions regarding hospital stay -Please call nursing station at [phone] if any nursing or medication questions -Return to the emergency room if symptoms worsen keep surgical area clean and dry for 48h then may remove outer dressing and shower but keep sterile strips intact. Activity: No lifting more than 10 lbs Followup: Jeremias Mendenhall MD [ACTIVE - CAN ADMIT] - 1 Week NONE,NONE [Primary Care Provider] -
== END 2024-12-10 14:34 | disposition home or self-care (01) ==
LOC: ER 00:37 → ERHOLD 07:39 → 4TH 09:15
PROVIDERS: ADMIT Hospitalist; ATTEND Hospitalist
PROC: 0FT44ZZ Resection of Gallbladder, Percutaneous Endoscopic Approach (ICD-10-PCS; principal; 2024-12-09 14:00)
DX: K80.12 Calculus of gallbladder with acute and chronic cholecystitis without obstruction (principal); E66.01 Morbid (severe) obesity due to excess calories; R11.2 Nausea with vomiting, unspecified; M54.50 Low back pain, unspecified; R10.9 Unspecified abdominal pain; Z68.37 Body mass index [BMI] 37.0-37.9, adult
CPT/HCPCS: 36415; 74177; 80053; 81001; 83690; 83735; 84100; 84703; 85025; 88304; 94010; 96361; 96365; 96366; 96375; 99285; G0378; J1100; J1790; J2003; J2250; J2405; J2543; J2704; J2710; J2765; J3010; J7030; Q9967